=== PATIENT | male | born 1940 | race African-American/Black ===

== ENCOUNTER 2018-08-25 09:05 | Emergency (ER) | payer OTHER ==
--- NOTE | 2018-08-25 10:33 | RAD REPORT ---
EXAM DESCRIPTION: RAD - Chest Single View - 08/25/2018 10:23 am CLINICAL HISTORY: leg swelling Chest pain. COMPARISON: No comparisons FINDINGS: Portable technique limits examination quality. The lungs are mildly emphysematous but clear. The heart is normal in size. No displaced fractures.Abiodun l lead pacer device is present. IMPRESSION: No acute intrathoracic process suspected. Mild COPD.
[2018-08-25 10:41] LABS: Urine Blood NEGATIVE (NEG); Urine Glucose NEGATIVE (NEG); Urine Protein NEGATIVE (NEG); Urine Specific Gravity <1.005 (1.005-1.030); Urine pH 5.5 (5.0-7.0)
--- NOTE | 2018-08-25 11:15 | RAD REPORT ---
EXAM DESCRIPTION: US - Extremity Venous Uni Ltd - 08/25/2018 11:09 am CLINICAL HISTORY: right leg swelling Leg swelling and edema. COMPARISON: No comparisons FINDINGS: Right lower extremity venous system was interrogated with Doppler technique. Normal flow, compressibility and augmentation was noted. There is no DVT present. IMPRESSION: No evidence of right lower extremity deep venous thrombosis.
[2018-08-25 11:18] LABS: Absolute Lymphocytes (CBC) 3.3 K/uL (0.7-4.9); Absolute Monocytes 0.5 K/uL (0.1-1.3); Absolute Neutrophil 2.6 K/uL (1.8-8.0); Basophils % 0.3 % (0-1.3); Eosinophils % 1.5 % (0-4.4); Hematocrit 42.5 % (39.6-49.0); Lymphocytes % 50.3 % (15.3-44.8); MPV 8.8 fL (7.6-11.3); Monocytes % 7.6 % (3.3-12.3)
[2018-08-25 11:20] LABS: Protime INR 1.01
[2018-08-25 11:38] LABS: ALT/SGPT 22 U/L (12-78); AST/SGOT 12 U/L (15-37); Albumin 3.8 g/dL (3.4-5.0); Alkaline Phosphatase 63 U/L (45-117); BUN Blood Urea Nitrogen 35 mg/dL (7-18); Bicarbonate 25 mmol/L (21-32); Bilirubin Direct < 0.1 mg/dL (0-0.2); Bilirubin Total 0.3 mg/dL (0.2-1.0); Glucose Level 80 mg/dL (74-106); Magnesium 2.4 mg/dL (1.8-2.4); NT PRO-BNP 219 pg/mL (<450); Protein, Total 7.3 g/dL (6.4-8.2); Sodium Level 142 mmol/L (136-145); Troponin (Emerg Dept Use Only) < 0.02 ng/mL (0.0-0.045)
--- NOTE | 2018-08-25 11:44 | EDPHYS ---
Physician Documentation [facility] Name: Eagle Valdes Age: 77 yrs Sex: Male : 1940 Arrival Date: 08/25/2018 Time: 09:11 Bed 17 Private MD: out of town, doctor ED Physician Harshil Zepeda HPI: 08/25 10:11 This 77 yrs old Black Male presents to ER via Ambulatory with complaints of Leg ps1 Swelling. 11:29 patient c/o right LLE. 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 Here currently visitng brother. Called cards and was told to come in to r/o DVT. No CP. No pain. states that his heart function is 70% after pacer. . Historical: - Allergies: 09:16 PENICILLINS; tw2 - Home Meds: 09:16 "unknown BP med" [Active]; tw2 - PMHx: 09:16 Hypertension; tw2 - PSHx: 09:16 pacemaker; tw2 - Immunization history:: Adult Immunizations. - Social history:: Smoking status: Patient uses tobacco products, smokes one pack cigarettes per day. - Ebola Screening: : Patient denies travel to an Ebola-affected area in the 21 days before illness onset. ROS: 11:29 Constitutional: Negative for fever, chills, and weight loss, Eyes: Negative for injury, ps1 pain, redness, and discharge, Cardiovascular: Negative for chest pain, palpitations, and edema, Respiratory: Negative for shortness of breath, cough, wheezing, and pleuritic chest pain, Abdomen/GI: Negative for abdominal pain, nausea, vomiting, diarrhea, and constipation, Skin: Negative for injury, rash, and discoloration, Neuro: Negative for headache, weakness, numbness, tingling, and seizure, Psych: Negative for depression, anxiety, suicide ideation, homicidal ideation, and hallucinations. 11:29 MS/extremity: Positive for swelling, of the right leg. Exam: 11:29 Constitutional: This is a well developed, well nourished patient who is awake, alert, ps1 and in no acute distress. Head/Face: Normocephalic, atraumatic. Eyes: Pupils equal round and reactive to light, extra-ocular motions intact. Lids and lashes normal. Conjunctiva and sclera are non-icteric and not injected. Chest/axilla: Normal chest wall appearance and motion. Nontender with no deformity. No lesions are appreciated. Cardiovascular: Regular rate and rhythm. No gallops, murmurs, or rubs. Normal PMI, no JVD. No pulse deficits. Respiratory: Lungs have equal breath sounds bilaterally, clear to auscultation and percussion. No rales, rhonchi or wheezes noted. No increased work of breathing, no retractions or nasal flaring. Abdomen/GI: Soft, non-tender, with normal bowel sounds. No distension or tympany. No guarding or rebound. No evidence of tenderness throughout. 11:29 Skin: Warm, dry with normal turgor. Normal color with no rashes, no lesions, and no evidence of cellulitis. Neuro: Awake and alert, GCS 15, oriented to person, place, time, and situation. Cranial nerves II-XII grossly intact. Sensory grossly intact. Psych: Awake, alert, with orientation to person, place and time. Behavior, mood, and affect are within normal limits. 11:29 Chest/axilla: pacer. 11:29 Musculoskeletal/extremity: Extremities: grossly normal except: noted in the right leg: swelling, There is no evidence of deformity, ecchymosis, erythema, tenderness. Vital Signs: 09:17 BP 160 / 82; Pulse 74; Resp 17; Temp 97.6(O); Pulse Ox 100% on R/A; Weight 79.38 kg tw2 (R); Height 5 ft. 11 in. (180.34 cm); Pain 0/10; 12:01 BP 151 / 79; Pulse 79; Resp 16; Pulse Ox 99% ; bp 09:17 Body Mass Index 24.41 (79.38 kg, 180.34 cm) tw2 MDM: 09:48 Patient medically screened. ps1 11:43 Data reviewed: vital signs, nurses notes, lab test result(s), radiologic studies, and ps1 as a result, I will discharge patient. Counseling: I had a detailed discussion with the patient and/or guardian regarding: the historical points, exam findings, and any diagnostic results supporting the discharge/admit diagnosis, lab results, radiology results, the need for outpatient follow up, to return to the emergency department if symptoms worsen or persist or if there are any questions or concerns that arise at home. ED course: pt stable. K 5.8 Home with lasix x3 days bid. F/u with cards at home. . 08/25 09:55 Order name: Basic Metabolic Panel; Complete Time: 11:49 ps1 08/25 09:55 Order name: CBC with Diff ps1 08/25 09:55 Order name: LFT's; Complete Time: 11:49 ps1 08/25 09:55 Order name: Magnesium; Complete Time: 11:49 ps1 08/25 09:55 Order name: NT PRO-BNP; Complete Time: 11:49 ps1 08/25 09:55 Order name: PT-INR; Complete Time: 11:29 ps1 08/25 09:55 Order name: Troponin (emerg Dept Use Only); Complete Time: 11:49 ps1 08/25 09:55 Order name: XRAY Chest (1 view); Complete Time: 10:37 ps1 08/25 09:55 Order name: EKG; Complete Time: 09:56 ps1 08/25 09:55 Order name: Cardiac monitoring; Complete Time: 10:04 ps1 08/25 09:55 Order name: EKG - Nurse/Tech; Complete Time: 10:58 ps1 08/25 09:55 Order name: Extremity Venous Uni Ltd US; Complete Time: 11:22 ps1 08/25 10:07 Order name: Urine Dipstick--Ancillary (enter results); Complete Time: 10:45 iw 08/25 11:52 Order name: Manual Differential EDMS 08/25 09:55 Order name: IV Saline Lock; Complete Time: 10:58 ps1 08/25 09:55 Order name: Labs collected and sent; Complete Time: 10:57 ps1 08/25 09:55 Order name: O2 Per Protocol; Complete Time: 10:04 ps1 08/25 09:55 Order name: O2 Sat Monitoring; Complete Time: 10:04 ps1 Administered Medications: No medications were administered Disposition: 08/25/18 11:44 Discharged to Home. Impression: Lower extremity edema, CHF, Hyperkalemia. - Condition is Stable. - Discharge Instructions: Edema. - Prescriptions for Lasix 20 mg Oral Tablet - take 1 tablet by ORAL route every 12 days; 6 tablet. - Medication Reconciliation Form, Thank You Letter, Antibiotic Education, Prescription Opioid Use form. - Follow up: out of town, doctor; When: 1 week; Reason: Further diagnostic work-up, Recheck today's complaints, Re-evaluation by your physician. Follow up: Emergency Department; When: As needed; Reason: Worsening of condition. - Problem is an acute exacerbation. - Symptoms have improved. Signatures: Dispatcher [employer] EDMS Laxmi Bansal RN RN tw2 Gurinder Black, RN RN bp Harshil Zepeda MD MD ps1 Corrections: (The following items were deleted from the chart) 11:47 11:44 08/25/2018 11:44 Discharged to Home. Impression: Lower extremity edema; CHF. ps1 Condition is Stable. Forms are Medication Reconciliation Form, Thank You Letter, Antibiotic Education, Prescription Opioid Use. Follow up: doctor out of town; When: 1 week; Reason: Further diagnostic work-up, Recheck today's complaints, Re-evaluation by your physician. Follow up: Emergency Department; When: As needed; Reason: Worsening of condition. Problem is an acute exacerbation. Symptoms have improved. ps1 11:48 11:43 ED course: pt stable. Home with lasix x3 days. F/u with cards at home. . ps1 ps1 12:02 11:47 08/25/2018 11:44 Discharged to Home. Impression: Lower extremity edema; CHF; bp Hyperkalemia. Condition is Stable. Discharge Instructions: Edema. Prescriptions for Lasix 20 mg Oral Tablet - take 1 tablet by ORAL route every 12 days; 6 tablet. and Forms are Medication Reconciliation Form, Thank You Letter, Antibiotic Education, Prescription Opioid Use. Follow up: doctor out of town; When: 1 week; Reason: Further diagnostic work-up, Recheck today's complaints, Re-evaluation by your physician. Follow up: Emergency Department; When: As needed; Reason: Worsening of condition. Problem is an acute exacerbation. Symptoms have improved. ps1
--- NOTE | 2018-08-25 11:44 | ER ---
Nurse's Notes [facility] Name: Eagle Valdes Age: 77 yrs Sex: Male : 1940 Arrival Date: 08/25/2018 Time: 09:11 Bed 17 Private MD: out of town, doctor Diagnosis: Lower extremity edema;CHF;Hyperkalemia Presentation: 08/25 09:13 Presenting complaint: Patient states: they check for clots in my left leg a month ago tw2 and the right leg was worse, about 9 days ago they unclogged it, my right lower leg and foot is swelling. Transition of care: patient was not received from another setting of care. Onset of symptoms was August 25, 2018. Risk Assessment: Do you want to hurt yourself or someone else? Patient reports no desire to harm self or others. Initial Sepsis Screen: Does the patient meet any 2 criteria? No. Patient's initial sepsis screen is negative. Does the patient have a suspected source of infection? No. Patient's initial sepsis screen is negative. Care prior to arrival: None. 09:13 Method Of Arrival: Ambulatory tw2 09:13 Acuity: BEVERLEY 3 tw2 Triage Assessment: 09:16 General: Appears in no apparent distress. Behavior is calm, cooperative, appropriate tw2 for age. Pain: Complains of pain in right leg. Historical: - Allergies: 09:16 PENICILLINS; tw2 - Home Meds: 09:16 "unknown BP med" [Active]; tw2 - PMHx: 09:16 Hypertension; tw2 - PSHx: 09:16 pacemaker; tw2 - Immunization history:: Adult Immunizations. - Social history:: Smoking status: Patient uses tobacco products, smokes one pack cigarettes per day. - Ebola Screening: : Patient denies travel to an Ebola-affected area in the 21 days before illness onset. Screenin:00 Abuse screen: Denies threats or abuse. Denies injuries from another. Nutritional bp screening: No deficits noted. Tuberculosis screening: No symptoms or risk factors identified. Fall Risk None identified. Assessment: 09:20 General: Appears in no apparent distress. comfortable, Behavior is calm, cooperative, bp appropriate for age. Pain: Denies pain. Neuro: Level of Consciousness is awake, alert, obeys commands, Oriented to person, place, time, situation, Appropriate for age. Cardiovascular: Patient's skin is warm and dry. Respiratory: Airway is patent Respiratory effort is even, unlabored, Respiratory pattern is regular, symmetrical. GI: No deficits noted. : No deficits noted. EENT: No deficits noted. Derm: No deficits noted. Musculoskeletal: Swelling present in right leg. 11:58 Reassessment: PT D/C HOME AMBULATORY, DX WITH CHF EXACERBATION. bp Vital Signs: 09:17 BP 160 / 82; Pulse 74; Resp 17; Temp 97.6(O); Pulse Ox 100% on R/A; Weight 79.38 kg tw2 (R); Height 5 ft. 11 in. (180.34 cm); Pain 0/10; 12:01 BP 151 / 79; Pulse 79; Resp 16; Pulse Ox 99% ; bp 09:17 Body Mass Index 24.41 (79.38 kg, 180.34 cm) tw2 ED Course: 09:11 Patient arrived in ED. mr 09:12 out of [facility], doctor is Private Physician. mr 09:14 Triage completed. tw2 09:15 Arm band placed on. tw2 09:19 Thao Hinds, RN is Primary Nurse. jl7 09:31 Harshil Zepeda MD is Attending Physician. ps1 10:03 Urine collected: clean catch specimen, clear, justyn colored. jb1 10:21 X-ray completed. Portable x-ray completed in exam room. Patient tolerated procedure sw well. 10:22 XRAY Chest (1 view) In Process Unspecified. EDMS 10:36 EKG done, by fishing tool technician oil well. reviewed by Harshil Zepeda MD. at1 10:37 Extremity Venous Uni Ltd US In Process Unspecified. EDMS 11:04 Inserted saline lock: 22 gauge in right antecubital area, using aseptic technique. bp Blood collected. 11:44 out of town, doctor is Referral Physician. ps1 11:47 Notified ED physician of a critical lab result(s). Potassium=5.8. iw 12:00 Patient has correct armband on for positive identification. Bed in low position. Call bp light in reach. Side rails up X2. 12:02 No provider procedures requiring assistance completed. IV discontinued, intact, bp bleeding controlled, No redness/swelling at site. Pressure dressing applied. Administered Medications: No medications were administered Outcome: 11:44 Discharge ordered by . ps1 12:01 Discharged to home ambulatory. bp 12:01 Condition: stable 12:01 Discharge instructions given to patient, Instructed on discharge instructions, follow up and referral plans. medication usage, Demonstrated understanding of instructions, follow-up care, medications, Prescriptions given X 1. 12:02 Patient left the ED. bp Signatures: Dispatcher [employer] EDMS Sherif Lyle jb1 Jamie, Christina mr Afia Thornton, RN RN iw Eliane Nino, software design manager EKG Tat1 Ching Keller Tara, RN RN tw2 Thao iHnds RN RN jl7 Gurinder Black, TJ RN bp Harshil Zepeda MD MD ps1
[2018-08-25 11:47] LABS: Potassium 5.8 mmol/L (3.5-5.1)
[2018-08-25 11:52] LABS: Blood Morphology Comment NOT SEEN (NOT SEEN); Platelet Estimate ADEQ
--- NOTE | 2018-08-26 07:04 | EKG ---
Test Date: 2018-08-25 Test Time: 10:31:04 Stencil Printer: PAULETTE MEASUREMENT RESULTS: Intervals: Rate: 70 MT: 112 QRSD: 142 QT: 418 QTc: 451 [place]: P: 69 MT: 112 QRS: 88 T: 49 INTERPRETIVE STATEMENTS: Electronic atrial pacemaker Right bundle branch block Abnormal ECG No previous ECG available for comparison Electronically Signed On 08-26-18 07:04:02 PATHOLOGIST ASSISTANT by Mark Aj
== END 2018-08-25 12:02 | disposition home or self-care (01) ==
LOC: EDBD 09:05 → ER 09:05
DX: I11.0 Hypertensive heart disease with heart failure (principal); I50.9 Heart failure, unspecified; E87.5 Hyperkalemia; I45.10 Unspecified right bundle-branch block; Z88.0 Allergy status to penicillin; F17.210 Nicotine dependence, cigarettes, uncomplicated
CPT/HCPCS: 36415; 71045; 80048; 80076; 81003; 83735; 83880; 84484; 85025; 85610; 93005; 93971; 99284